=== PATIENT | male | born 1980 | race Caucasian/White ===

== ENCOUNTER 2018-06-22 14:07 | Emergency (ER) | payer OTHER ==
[2018-06-22] MEDS: PERCOCET 5MG/325MG TAB PO (17:01)
== END 2018-06-22 17:13 | disposition home or self-care (01) ==
LOC: M ED 14:07
DX: M25.561 Pain in right knee (principal); M25.761 Osteophyte, right knee; Z79.899 Other long term (current) drug therapy
CPT/HCPCS: 73564

== ENCOUNTER → 2018-09-08 | Outpatient (CLI) | payer OTHER | LOC: M RAD 11:51 | DX: M79.669 Pain in unspecified lower leg (principal); M79.89 Other specified soft tissue disorders | CPT/HCPCS: 93971 ==